=== PATIENT | male | born 1980 | race Caucasian/White ===

== ENCOUNTER 2021-06-05 03:18 | Emergency (ER) | payer MEDICAID, OTHER ==
[~2021-06-05] VITALS: Ht 177.8 cm; Wt 72.7 kg
[~2021-06-05 03:18] MED LIST: CYCL-394 PO; IBUP-1984 PO
[2021-06-05] MEDS ORDERED: morphine 4 MG/ML inj SYRINge IV ONE (05:20)
[2021-06-05] MEDS ORDERED: ondansetron/PF 4mg/2ml inj IV ONE (05:30)
[2021-06-05] MEDS: morphine 2 MG/ML inj. syringe IV PRN ×2 (05:49→06:39)
[2021-06-05] MEDS ORDERED: ketamine 10mg/ml 20ml inj 22 MG in normal saline 100ml IV soln 97.8 ML IV ONE (09:10)
[2021-06-05] MEDS ORDERED: ketamine 50 mg/ml 10ml vial IV ONE (09:50)
[2021-06-05] MEDS ORDERED: IBUP-1986 PO (10:22)
[2021-06-05] MEDS ORDERED: OXYC-145 PO (10:22)
[2021-06-05 12:22] VITALS: BP 120/89
== END 2021-06-05 12:25 | disposition home or self-care (01) ==
LOC: ER 03:19
DX: S52.91XA Unspecified fracture of right forearm, initial encounter for closed fracture (principal); S52.201A Unspecified fracture of shaft of right ulna, initial encounter for closed fracture; F17.200 Nicotine dependence, unspecified, uncomplicated; Z56.0 Unemployment, unspecified; Z59.0 Homelessness; Z86.14 Personal history of Methicillin resistant Staphylococcus aureus infection; Z79.899 Other long term (current) drug therapy; V19.3XXA Pedal cyclist (driver) (passenger) injured in unspecified nontraffic accident, initial encounter; Y93.89 Activity, other specified; Y92.89 Other specified places as the place of occurrence of the external cause; Y99.8 Other external cause status
CPT/HCPCS: 29125; 73110; 96374; 96375; 96376; 99284; J2270; J2405

== ENCOUNTER 2021-06-06 18:21 | Emergency (ER) | payer MEDICAID, OTHER ==
[~2021-06-06 18:21] MED LIST changes: +IBUP-1986 PO; +OXYC-145 PO
--- NOTE | 2021-06-06 18:40 | NUR ---
Sent to [facility], not currently there
== END 2021-06-06 21:27 | disposition left against medical advice (07) ==
LOC: ER 18:21
DX: Z53.21 Procedure and treatment not carried out due to patient leaving prior to being seen by health care provider (principal)

== ENCOUNTER 2021-09-10 03:37 | Emergency (ER) | payer MEDICAID, OTHER ==
[~2021-09-10] VITALS: Ht 177.8 cm; Wt 72.0 kg
[2021-09-10] MEDS ORDERED: LIDOcaine 1% 30ml preserv. free vial IJ ONE (04:20)
[2021-09-10] MEDS ORDERED: ceFAZolin 1gm IM kit IM ONE (05:55)
[2021-09-10] MEDS ORDERED: CEPH-585 PO (06:16)
[2021-09-10 06:26] VITALS: BP 136/89
== END 2021-09-10 06:28 | disposition home or self-care (01) ==
LOC: ER 03:37
DX: S61.219A Laceration without foreign body of unspecified finger without damage to nail, initial encounter (principal); S62.609A Fracture of unspecified phalanx of unspecified finger, initial encounter for closed fracture; F17.210 Nicotine dependence, cigarettes, uncomplicated; Z59.00 Homelessness unspecified; Z56.0 Unemployment, unspecified
CPT/HCPCS: 12001; 73140; 96372; 99283; J0690

== ENCOUNTER 2023-07-11 02:31 | Emergency (ER) | payer MEDICAID ==
[~2023-07-11] VITALS: Ht 177.8 cm; Wt 62.4 kg
[2023-07-11 02:34] VITALS: TEMP 98.2
[2023-07-11 04:44] VITALS: BP 114/84; PULSE 112; RESP 17; O2SAT 100
[2023-07-11] MEDS ORDERED: SULF1TAB45 PO (04:49)
== END 2023-07-11 05:00 | disposition home or self-care (01) ==
LOC: ER 02:32
DX: R59.1 Generalized enlarged lymph nodes (principal); Z79.899 Other long term (current) drug therapy; Z79.1 Long term (current) use of non-steroidal anti-inflammatories (NSAID); Z79.2 Long term (current) use of antibiotics
CPT/HCPCS: 99283

== ENCOUNTER 2023-07-16 19:05 | Emergency (ER) | payer MEDICAID ==
[~2023-07-16] VITALS: Ht 177.8 cm; Wt 68.2 kg
[~2023-07-16 19:05] MED LIST changes: +SULF1TAB45 PO
[2023-07-16 19:08] VITALS: TEMP 98.5
[2023-07-16] MEDS ORDERED: cephalexin 250mg capsule PO ONE (20:35)
[2023-07-16] MEDS ORDERED: CEPH-585 PO ×3 (20:36→20:45)
[2023-07-16 20:44] VITALS: BP 117/84; PULSE 93; RESP 20; O2SAT 99
== END 2023-07-16 20:47 | disposition home or self-care (01) ==
LOC: ER 19:05
DX: N49.2 Inflammatory disorders of scrotum (principal); F17.210 Nicotine dependence, cigarettes, uncomplicated; Z79.2 Long term (current) use of antibiotics; Z79.1 Long term (current) use of non-steroidal anti-inflammatories (NSAID); Z79.899 Other long term (current) drug therapy
CPT/HCPCS: 99283